=== PATIENT | female | born 1970 | race Caucasian/White ===

== ENCOUNTER → 2018-03-25 08:39 | Outpatient (CLI) | payer OTHER, SELFPAY ==
--- NOTE | 2018-03-25 | DI.US.S_ITS ---
LIMITED ULTRASOUND OF RIGHT BREAST: 03/25/2018 CLINICAL: Deformation of the right breast. Per technologist, patient presents today with a resolving redness to the skin with a lump. The patient states a couple of weeks ago she noted that there was an 'angry red spot' above the nipple associted with 'quater' size lump. The skin was described as 'itchy' as well. CBE, recently, the patient had been on antibiotics. She states that the area is better with color (can see small amount of redness) and the lump is smaller (dime size), also the 'itchyness' has been resolved. The patient also states that this not the first noted time this year she has had this issue. No lump at that time and antibiotics were given at that time of the event. (that was resolved as well). No discharge had been noted by the pt at either event. . Comparison is made to exams dated: 03/25/2018 mammogram - [facility], 05/09/2017 ultrasound, and 05/09/2017 mammogram - [facility]. Real-time and Doppler ultrasound of the right breast 12 o'clock region were performed. [place] scale images of the real-time examination were reviewed. Targeted ultrasound was performed in the region of the patient's reported focal palpable abnormality in the right breast at 12 o'clock 2 cm from the nipple. No underlying breast mass or abnormality is identified. Physical exam demonstrates minimal erythema at the site of concern but no other visible skin lesion. IMPRESSION: NEGATIVE 1) Minimal erythema at site of patient's focal palpable abnormality in the right breast at 12 o'clock 2 cm from the nipple, but no underlying ultrasound abnormalities are identified to explain patient's reported focal palpable abnormality. Recommend clinical follow-up for further evaluation and management of the patient's reported symptoms. 2) There is no sonographic evidence of malignancy in the imaged right breast. Return to annual screening mammography is recommended. These results and recommendations were discussed with the patient at the time of the exam by Dr. Canales in person. The patient was advised to monitor her breasts and to return sooner for re-evaluation should she feel anything grow or change. This exam was interpreted at Station ID: [id number]. Electronically Signed By: Paramjit Canales M.D. ecl/:03/25/2018 11:51:08 letter sent: Clinical Evaluation Ultrasound BI-RADS: 1 Negative
--- NOTE | 2018-03-25 | DI.MG.S_ITS ---
BILATERAL DIGITAL DIAGNOSTIC MAMMOGRAM 3D/2D: 03/25/2018 CLINICAL: Deformation of the right breast. Per technologist, patient presents today with a resolving redness to the skin with a lump. The patient states a couple of weeks ago she noted that there was an 'angry red spot' above the nipple associted with 'quater' size lump. The skin was described as 'itchy' as well. CBE, recently, the patient had been on antibiotics. She states that the area is better with color (can see small amount of redness) and the lump is smaller (dime size), also the 'itchyness' has been resolved. The patient also states that this not the first noted time this year she has had this issue. No lump at that time and antibiotics were given at that time of the event. (that was resolved as well). No discharge had been noted by the pt at either event. . Comparison is made to exams dated: 05/09/2017 mammogram, 10/07/2014 mammogram, 05/25/2011 mammogram, and 05/09/2017 ultrasound - [facility]. The tissue of both breasts is extremely dense, which lowers the sensitivity of mammography. There is a triangular marker overlying the skin of the upper outer right breast at anterior depth the site of the patient's reported palpable abnormality. There is a small skin fold from the triangular marker. There is no other underlying mammographic abnormality. There are stable coarse grouped calcifications in the upper outer right breast at middle depth that are unchanged from comparison exam of 10/07/2014. No significant masses, calcifications, or other findings are seen in either breast. IMPRESSION: INCOMPLETE: NEEDS ADDITIONAL IMAGING EVALUATION No mammographic abnormality to correlate with the site of the patient's reported focal palpable abnormality. Targeted diagnostic ultrasound recommended for further evaluation, which will be performed immediately following this exam. This exam was interpreted at Station ID: [id number]. NOTE: For mammograms, a report in lay terms will be sent to the patient. Approximately 15% of breast malignancies will not be visualized mammographically. In the management of a palpable breast mass, a negative mammogram must not discourage biopsy of a clinically suspicious lesion. Electronically Signed By: Paramjit Canales M.D. ecl/:03/25/2018 11:30:18 letter sent: Additional Imaging Needed ACR BI-RADS Category 0: Incomplete [id number]
== END ==
PROVIDERS: PCP Family Medicine; Visit Provider Nurse Practitioner Family
DX: R92.8 Other abnormal and inconclusive findings on diagnostic imaging of breast (principal); N63.11 Unspecified lump in the right breast, upper outer quadrant
CPT/HCPCS: 76642; 77066; G0279